=== PATIENT | female | born 1985 | race Caucasian/White ===

== ENCOUNTER 2017-11-18 16:51 | Outpatient (CLI) | payer OTHER ==
[2017-11-18 17:25] LABS: Hemoglobin 14.1 g/dL (12.0-16.0); Mean Corpuscular HGB CONC 34.2 g/dL (32.0-36.0); Mean Corpuscular Hemoglobin 31.2 pg (27.0-31.0); Mean Corpuscular Volume 91.3 fl (81.0-99.0); Mean Platelet Volume 8.5 fL (7.4-10.4); Platelet Count 177 thou/uL (130-400); RBC Distribution Width 11.2 % (11.5-14.5); White Blood Cell (WBC) Count 5.9 thou/uL (4.8-10.8)
[2017-11-18 18:56] LABS: BHCG - Serum Negative (NEGATIVE); Pregs Control Background? CLEAR/WHITE (CLR/WHITE); Pregs Control Bar Appear? YES (CONTROL BAR)
== END 2017-11-18 16:52 | disposition home or self-care (01) ==
LOC: LABBT 16:51
PROVIDERS: ATTEND Obstetrics & Gynecology
DX: Z01.812 Encounter for preprocedural laboratory examination (principal); R10.2 Pelvic and perineal pain
CPT/HCPCS: 84703; 85027; 86850; 86900; 86901

== ENCOUNTER 2017-11-19 10:20 | Day surgery (SDC) | payer OTHER ==
[2017-11-18 17:20] VITALS: BMI 21.7
[2017-11-19] MEDS ORDERED: CEFAZOLIN/Water 2 GM/20 ML SYRINGE ONE (11:01)
[2017-11-19] MEDS ORDERED: Ondansetron ODT 4 MG TAB ONE (11:46)
[2017-11-19] MEDS ORDERED: Bupivacaine/Epinephrine 0.25% 30 ML VIAL ONE (11:49)
[2017-11-19] MEDS ORDERED: Bupivacaine HCl 0.5%/Epinephrine 1:200,000/PF 30 ml Vial ONE (11:49)
[2017-11-19] MEDS ORDERED: Scopolamine 1.5 mg/72 hour Patch ONE (12:02)
[2017-11-19] MEDS ORDERED: Fentanyl 100 MCG/2 ML VIAL ONE ×3 (12:03→14:04)
[2017-11-19] MEDS ORDERED: HYDROcodone/Acetaminophen 5/325 mg Tablet ONE (15:05)
[2017-11-19] MEDS ORDERED: Glycopyrrolate 0.2 MG/ML 5 ML SYRINGE ONE (15:51)
[2017-11-19] MEDS ORDERED: Ketorolac Tromethamine 30 MG/ML VIAL ONE (15:51)
--- NOTE | 2017-11-19 17:56 | OP ---
DATE OF PROCEDURE: 11/19/2017 PREOPERATIVE DIAGNOSIS: Pelvic pain, unknown etiology, left side worst, chronic. POSTOPERATIVE DIAGNOSIS: Pelvic pain, unknown etiology, left side worst, chronic, cause unknown. PROCEDURE PERFORMED: Diagnostic laparoscopy and video documentation. SURGEON: Bryce Almazan M.D. STUDENT ACTIVITIES DIRECTOR: Gabby Potter. ANESTHESIA: General endotracheal by Duong Koenig CRNA (see his notes for details). OPERATIVE FINDINGS: Included normal-appearing uterus, tubes, and ovaries with a normal-appearing bruno er and absent appendix. Two previously used samuel from the appendectomy and the patient's cul-de-s ac that were subperitoneal, but in no serious position. Normal cul-de-sacs otherwise with no evidenc e of endometriosis or scarring. OPERATIVE COMPLICATIONS: None. BLOOD LOSS: Less than 10 mL PROCEDURE IN DETAIL: The patient was taken to the operating room after having received Ofirmev 1 gra m IV piggyback and 2 grams of Ancef IV piggyback and then she was given general anesthetic, prepped a nd draped and placed in modified lithotomy position. A bivalve speculum was placed in the vagina and the cervix was grasped with a tenaculum and a Hulka m anipulator placed within the uterine cavity. The laparoscopy was started by using 0.5% Marcaine on all the 3 incisions which were made at the umbi lical level. The laparoscope was inserted through a 5-mm trocar after the abdomen and had been insuf flated to 15 mm of pressure of carbon dioxide gas with the Veress needle and made after a stab wound with the knife. Lateral trocars were placed and levelled with the umbilical trocars for manipulation of the adnexa and further documentation of the patient's anatomy. Extensive evaluation of the patient's pelvis, both adnexa, anterior and posterior cul-de-sacs, the neftali wel and the liver were done. There was no definite evidence of any endometriosis. The two previous samuel that had fallen into the cul-de-sac. They were fixed and placed on the peritoneum and there may have been minor adhesions of the left adnexa to the left pelvic sidewall which were taken easily, relieved by just elevating the ovary. There was no bleeding from any of these actions. The gas was removed and the small incision was closed with subcuticular 3-0 plain. The skin was further closed with Dermabond glue. The Hulka manipulator was removed from the cervix and there was bleeding from t hat Hulka manipulator tenaculum. This was stopped by approximately 3 minutes of pressure and then so me silver nitrate on that wound. The patient was taken to the recovery room having tolerated the procedure and anesthesia well, where she did receive 30 mg of IV Toradol prior to the cessation of the case.
--- NOTE | 2017-11-19 18:15 | DIS ---
DATE OF ADMISSION: 11/19/2017 DATE OF DISCHARGE: 11/19/2017 Please see history and physical and operative note for further details. HOSPITAL COURSE: Basically, this is a 32-year-old white para 2 whose last episode of pregnan cy ended 3 years ago, was a spontaneous delivery of a male child. She subsequently developed intermi ttent and then worsening chronic left lower quadrant pain which got questionably better with use of D epo-Provera which stopped her menses. She has been treated with multiple regimens to try to alleviat e her pain including nortriptyline 25 mg which gave her no relief. She was also tried on gabapentin with no relief and she uses the ibuprofen, Celebrex, or tramadol for intermittent pain relief. We at tempted pelvic floor relaxation techniques and did not help her situation. She said it made her wors e. No full evaluation of the bowel was done that ultrasound has previously been negative and the exa m showed intermittent tenderness up on the left adnexa. At this point, the patient was ready for definitive diagnostic evaluation with laparoscopy. She unde rstands that there was some chance that no obvious cause would be made and she was prepared to lose t he left adnexa if necessary to relieve her pain depending on pathology found. HOSPITAL COURSE: On 11/19/2017, the patient underwent general anesthetic and had a diagnostic laparo scopy which was basically normal. Video photographs are available. Her liver was normal. Her appendix was surgically absent. She had a couple of (2:23) appendiceal clips that fallen in the cul-de-sac were fixed deep into the cu l-de-sac to the peritoneal sidewall and left in place. There were no definite adhesions, although th ere was some question when the left adnexa was manipulated that it may have been slightly adhesed to the left pelvic sidewall, which was easily released. Fallopian tubes and ovaries were normal bilater ally. Both cul-de-sacs showed no evidence of endometriosis or scarring and there was no sign of any previous infection in the pelvis. She did receive IV antibiotics preoperatively as well as Ofirmev and then intraoperatively she receiv ed Toradol for pain. Within approximately 2 hours, she was ready for discharge and the nurse called (3:10) vital sig ns were fine. She had no unusual complaints, had no severe nausea and she had been given oral Hortense for pain relief. IMPRESSION AND FINAL DIAGNOSES: Chronic left lower quadrant abdominal pain of questionable etiology, possibly due to chronic constipation due to some distention of the sigmoid colon. My plan is to discharge the patient home on Hortense 5/325 mg ibuprofen and switching over to tramadol a nd discontinuation of all significant pain medicines in a short period of time. She was only given 2 0 of the Hortense. Warnings and instructions were given to her both written and also to her and she has phone numbers to call and contact if she should have any unusual bleeding, worsening pelvic pain, worsening abdominal pain, fever, unusual discharge. At some point, we will discuss her starting either MiraLax regularly or a trial up with a newer medic ation such as Linzess for constipation and if they give her any relief and now ultimately going to a tax revenue officer if there is no obvious relief to the simple solutions. I discussed all of these findings with her in detail. She was cognizant of her situation wel l enough to discuss with her prior to discharge. Video photographs were given to the family as well and she understands that the description of the pathology. She has a followup appointment with me in 2 weeks.
== END 2017-11-19 16:00 | disposition home or self-care (01) ==
LOC: SDC 10:20
PROVIDERS: ATTEND Obstetrics & Gynecology
PROC: 0WJJ4ZZ Inspection of Pelvic Cavity, Percutaneous Endoscopic Approach (ICD-10-PCS; principal; 2017-11-19)
DX: R10.2 Pelvic and perineal pain (principal); G89.29 Other chronic pain; Z79.3 Long term (current) use of hormonal contraceptives; Z79.899 Other long term (current) drug therapy; Z88.1 Allergy status to other antibiotic agents; Z88.8 Allergy status to other drugs, medicaments and biological substances
CPT/HCPCS: 96374; J0131; J0670; J1885; J3010; Q0162

== ENCOUNTER 2018-09-02 10:27 | Day surgery (SDC) | payer OTHER ==
[2018-09-02 11:24] VITALS: BMI 23.6
[2018-09-02 11:47] LABS: Bilirubin Negative (Negative); Blood, Urine Negative (Negative); Clarity TURBID (Clear); Glucose, Urine (Dipstick) Negative (Negative); Leukocyte Small (Negative); Nitrite Negative (Negative); Protein, Urine (Dipstick) Negative (Neg-Trace); Specific Gravity, Urine 1.019 (1.002-1.036); Urobilinogen 0.2 mg/dL (0.2-1.0); pH, Urine 7.5 (5.0-9.0)
[2018-09-02 11:50] LABS: Bacteria/HPF 1+ HPF (None Seen); Hyaline Casts/LPF 0-3 HYALINE CAST LPF (0-3 Hyaline); Pathc Cast-AUWi Flag 0.58 (0-2.49); RBC/HPF 0-3 HPF (0-3)
[2018-09-02] MEDS: Lactated Ringer's 1,000 ML IV SCH ×2 (12:00→12:38)
[2018-09-02] MEDS ORDERED: Lactated Ringer's 1,000 ML IV SCH (12:00)
[2018-09-02] MEDS ORDERED: Ondansetron PF 4 MG/2 ML Vial ONE (12:15)
[2018-09-02 12:32] LABS: #Lymphocytes 1.8 thou/uL (1.20-3.40); #Monocytes 0.4 thou/uL (0.11-0.59); %Basophils 0.3 % (0.0-1.0); %Eosinophils 0.5 % (0.0-10.0); %Lymphocytes 19.6 % (21.0-51.0); %Monocytes 4.2 % (0.0-10.0); %Neutrophils 75.4 % (42.0-75.0); Hemoglobin 11.8 g/dL (12.0-16.0); Mean Corpuscular HGB CONC 33.5 g/dL (32.0-36.0); Mean Corpuscular Hemoglobin 30.6 pg (27.0-31.0); Mean Corpuscular Volume 91.2 fL (78.0-98.0); Mean Platelet Volume 9.6 fL (7.4-10.4); Platelet Count 159 thou/uL (130-400); RBC Distribution Width 11.8 % (11.5-14.5); Red Blood Cell (RBC) Count 3.87 mill/uL (4.20-5.40); White Blood Cell (WBC) Count 9.3 thou/uL (4.8-10.8)
[2018-09-02] MEDS ORDERED: Ondansetron PF 4 MG/2 ML Vial IVP SCH (13:00)
[2018-09-02 13:01] LABS: ALT (SGPT) 17 U/L (8-55); AST (SGOT) 24 U/L (5-34); Albumin 3.9 g/dL (3.5-5.0); Alkaline Phosphatase 51 U/L (40-150); Anion Gap 15 mmol/L (10-20); BUN (Urea Nitrogen) 15 mg/dL (7.0-18.7); Bilirubin, Total 0.3 mg/dL (0.2-1.2); Calc. Creatinine Clearance 140 mL/min (70-130); Calcium 8.8 mg/dL (7.8-10.44); Carbon Dioxide 20 mmol/L (22-29); Chloride 107 mmol/L (98-107); Estimated GFR-MDRD Greater than 90; Globulin 2.7 g/dL (2.4-3.5); Glucose 77 mg/dL (70-105); Potassium 3.9 mmol/L (3.5-5.1); Protein, Total 6.6 g/dL (6.0-8.3); Sodium 138 mmol/L (136-145)
[2018-09-02] MEDS ORDERED: Butorphanol Tartrate 1 MG/ML VIAL SLOW IVP PRN (13:20)
[2018-09-02] MEDS ORDERED: Butorphanol Tartrate 1 MG/ML VIAL ONE (13:25)
[2018-09-02] MEDS ORDERED: CEFAZOLIN 1 GM in Sodium Chloride 0.9% 100 ML IVPB SCH (14:00)
--- NOTE | 2018-09-02 21:47 | SS ---
DATE OF ADMISSION: 09/02/2018 DATE OF DISCHARGE: 09/02/2018 REGULAR PHYSICIAN: Jessica Abbott MD EVALUATING PHYSICIAN: Rishabh Nieves MD CHIEF COMPLAINT: Headache over the last 4 days with back pain and cramping. HISTORY OF PRESENT ILLNESS: Ms. Snider is a 33-year-old white G5, P2, AB2 with an estimated date of confinement of 12/18/2018, who presents complaining of a 4-day history of headache with nausea, blurry vision, lower abdominal pain, back pain, and cramping. Her care has been with Dr. Abbott without significant complications at this point. Her past obstetrical history includes 2 vaginal deliveries, one at term and one . PAST MEDICAL HISTORY: Includes migraine headaches and mixed connective tissue disorder. PAST SURGICAL HISTORY: Includes sinus surgery, tonsillectomy, right breast surgery, appendectomy, laparoscopy, and surgery to her hip and writs. CURRENT MEDICATIONS: 1. vitamins. 2. Cinthya. ALLERGIES: VERSED AND NORVASC. SOCIAL HISTORY: She denies tobacco, alcohol, or drug use. FAMILY HISTORY: Unremarkable. REVIEW OF SYSTEMS: She denies nausea, vomiting, fever, chills, vaginal bleeding or ruptured membranes. PHYSICAL EXAMINATION: In triage, her blood pressures are very reassuring. I see blood pressures in the 120s over 70s range. She is afebrile. In general, she is in no acute distress. Abdomen is soft, nontender, and gravid. heart tones are stable. Only an occasional contraction is seen. LABORATORY DATA: White count 9.3, hemoglobin and hematocrit are 11.8 and 35.3, platelet count 159,000. Chemistry: Sodium 138, potassium 3.9, BUN 15, creatinine 0.51, total bilirubin 0.3, AST and ALT are 24 and 17 respectively. Her alkaline phosphatase is 51. Urinalysis shows a specific gravity of 1.019 with negative protein, negative glucose, negative ketones. On microscopic urinalysis, there is 0-3 rbc's, 7-10 white cells, 1+ bacteria with only 46 epithelials. The patient was hydrated, given a single dose of Ancef 1 g IV as well as a single dose of Stadol 1 mg. She began to feel better after these were given. ASSESSMENT: 1. 24-1/2 week intrauterine . 2. No evidence of labor. 3. History of migraine headaches. 4. Urinary tract infection. PLAN: The patient will be discharged home with labor precautions. She was given a prescription for Keflex 500 mg one p.o. 4 times a day for a week. She has already been given headache medicine by Dr. Abbott and she can use this at home. She was told to return should she experience symptoms of labor. She voiced understanding of her discharge instructions and was sent home in good condition. Job ID: [id number]
== END 2018-09-02 15:20 | disposition home or self-care (01) ==
LOC: L&D/OP 10:27
PROVIDERS: ATTEND Obstetrics & Gynecology
DX: O99.89 Other specified diseases and conditions complicating pregnancy, childbirth and the puerperium (principal); G43.909 Migraine, unspecified, not intractable, without status migrainosus; O23.42 Unspecified infection of urinary tract in pregnancy, second trimester; Z3A.24 24 weeks gestation of pregnancy; Z90.89 Acquired absence of other organs; Z90.49 Acquired absence of other specified parts of digestive tract; Z88.4 Allergy status to anesthetic agent; Z88.8 Allergy status to other drugs, medicaments and biological substances; Z98.890 Other specified postprocedural states; Z79.899 Other long term (current) drug therapy
CPT/HCPCS: 80053; 81003; 81015; 85025; 96361; 96365; 96375; 99283; J0595; J0690; J2405; J7050

== ENCOUNTER 2018-11-02 04:44 | Inpatient (IN) | payer OTHER ==
[2018-11-02 05:43] VITALS: BP 117/79; TEMP 98.5; BMI 27.4
[2018-11-02 05:52] LABS: Amnisure Test RUPTURE DETECTED (No Rupture)
[2018-11-02 05:53] LABS: Amnisure Internal Control QC ACCEPTABLE (ACCEPTABLE)
[2018-11-02] MEDS ORDERED: Acetaminophen 500 MG TAB PO PRN (06:04)
[2018-11-02] MEDS ORDERED: Butorphanol Tartrate 1 MG/ML VIAL SLOW IVP PRN (06:04)
[2018-11-02] MEDS ORDERED: Meperidine HCl/PF 25 MG/ML VIAL IM/IV PRN (06:04)
[2018-11-02] MEDS ORDERED: Ondansetron PF 4 MG/2 ML Vial IVP PRN (06:04)
[2018-11-02] MEDS ORDERED: Promethazine HCl 25 MG/ML VIAL IM PRN (06:04)
[2018-11-02] MEDS ORDERED: CEFAZOLIN 2 GM in Premix Bag 1 BAG IVPB SCH (06:15)
[2018-11-02] MEDS ORDERED: Lactated Ringer's 1,000 ML IV SCH ×2 (06:15)
[2018-11-02] MEDS ORDERED: Penicillin G Potassium 5 MILL.UNITS in Sodium Chloride 0.9% 100 ML IVPB SCH (06:15)
[2018-11-02] MEDS ORDERED: Bicitra 30 ML UDCUP PO SCH (06:15)
[2018-11-02 06:41] LABS: Hemoglobin 11.8 g/dL (12.0-16.0); Mean Corpuscular HGB CONC 33.4 g/dL (32.0-36.0); Mean Corpuscular Hemoglobin 30.1 pg (27.0-31.0); Mean Corpuscular Volume 90.2 fL (78.0-98.0); Mean Platelet Volume 9.1 fL (7.4-10.4); Platelet Count 128 thou/uL (130-400); RBC Distribution Width 12.2 % (11.5-14.5); Red Blood Cell (RBC) Count 3.91 mill/uL (4.20-5.40); White Blood Cell (WBC) Count 10.8 thou/uL (4.8-10.8)
[2018-11-02] MEDS ORDERED: Magnesium Sulfate 20 gm/500 ml 20 GM/500 ML BAG ONE (07:18)
[2018-11-02 07:20] LABS: Hep B Surf Ag Non-Reactive S/CO (NonReactive)
--- NOTE | 2018-11-02 07:21 | HP ---
REGULAR PHYSICIAN: Jessica Abbott MD EVALUATING PHYSICIAN: Rishabh Nieves MD CHIEF COMPLAINT: Leakage of fluid at home. HISTORY OF PRESENT ILLNESS: Ms. Snider is a 33-year-old white, G5, P2, AB2 with an estimated date of confinement of 12/18/2018, who presents complaining of leakage of fluid starting at 2:00 a.m. with intermittent contractions. She denies vaginal bleeding or decreased movement. Her care has been with Dr. Abbott. PAST OBSTETRICAL HISTORY: Includes 2 vaginal deliveries, one at term and one at 31 weeks. PAST MEDICAL HISTORY: Reported connective tissue disorder. PAST SURGICAL HISTORY: Sinus surgery, tonsillectomy, bilateral shoulder surgery , right breast surgery, surgery to her left breast, bilateral hip surgeries as well as an appendectomy and laparoscopy. CURRENT MEDICATIONS: Include; 1. vitamins. 2. Desouza. ALLERGIES: TO VERSED AND NORVASC. SOCIAL HISTORY: Denies tobacco, alcohol, or drug use. FAMILY HISTORY: Otherwise, unremarkable. REVIEW OF SYSTEMS: Positive for leakage of fluid. Denies fever, chills, nausea , vomiting, vaginal bleeding, or decreased movement. PHYSICAL EXAMINATION: VITAL SIGNS: Stable and she is afebrile in triage. CHEST: Clear to auscultation. CARDIOVASCULAR: Regular rate and rhythm. ABDOMEN: Soft, nontender, and gravid. heart rate tracing is stable with no decelerations. Intermittent contractions were seen. LABORATORY DATA: AmniSure returns positive for ruptured membranes. ASSESSMENT: 1. A 33-week intrauterine . 2. Ruptured membranes. PLAN: Dr. Abbott has been contacted and the plan at this time is to give steroids and start penicillin. Should she progress in labor, it appears that her disposition at this time is to proceed with a primary due to her bilateral past hip surgeries. She will be watched carefully for progression of labor. Job ID: [id number] [facility]
[2018-11-02 07:22] LABS: Syphilis Antibody Nonreactive (Nonreactive); Syphilis Antibody Index 0.14 S/CO (<1.00 Non-Reactive)
--- NOTE | 2018-11-02 07:24 | PDOC.EVN ---
Event Note - Event Note Event Note: Continues to c/o UCs. SVE rechecked by labor RN, unchanged a . FHTs stable, UCs q 5 mins. NICU at capacity. Will start MgS04 and attempt transfer to another facility.
[2018-11-02] MEDS ORDERED: Calcium Gluc 4.6 MEQ/10 ML (100 MG/ML) SLOW IVP PRN (07:27)
[2018-11-02] MEDS ORDERED: Magnesium Sulfate 20 GM/WATER 500 ML BAG IVPB SCH (07:30)
[2018-11-02] MEDS ORDERED: Magnesium Sulfate 20 gm/500 ml 20 GM/500 ML BAG IVPB SCH (07:30)
[2018-11-02] MEDS ORDERED: Betamet Acet/Betamet Na Ph 30 MG/5 ML VIAL IM SCH (09:00)
[2018-11-02] MEDS ORDERED: Penicillin G 2.5 MILL.units 2.5 MILL.UNITS in Premix Bag 1 BAG IVPB SCH (12:00)
== END 2018-11-02 08:57 | disposition short-term general hospital (02) | DRG 833 ==
LOC: L&D/OP 04:44 → L&D 07:22
PROVIDERS: ADMIT Obstetrics & Gynecology; ATTEND Obstetrics & Gynecology
DX: O42.913 Preterm premature rupture of membranes, unspecified as to length of time between rupture and onset of labor, third trimester (principal); Z3A.33 33 weeks gestation of pregnancy; Z98.890 Other specified postprocedural states; Z88.8 Allergy status to other drugs, medicaments and biological substances; Z88.4 Allergy status to anesthetic agent; Z90.49 Acquired absence of other specified parts of digestive tract
CPT/HCPCS: 36415; 84112; 85025; 85027; 86780; 86850; 86900; 86901; 87340; 87389; 99285; J0702; J2405; J2540; J3475; J7050

== ENCOUNTER 2019-02-26 06:09 | Day surgery (SDC) | payer OTHER ==
[2019-02-25 09:49] VITALS: BMI 24.3
[2019-02-26] MEDS ORDERED: Fentanyl 100 MCG/2 ML VIAL ONE (06:13)
[2019-02-26] MEDS ORDERED: ceFAZolin Sodium (SDC) 2 GM/100 ML BAG ONE (06:43)
[2019-02-26 06:47] LABS: #Basophils 0.1 thou/uL (0.0-0.2); #Eosinphils 0.3 thou/uL (0.0-0.7); #Lymphocytes 1.9 thou/uL (1.20-3.40); #Monocytes 0.4 thou/uL (0.11-0.59); #Neutrophils 2.7 thou/uL (1.40-6.50); %Eosinophils 4.9 % (0.0-10.0); %Lymphocytes 35.9 % (21.0-51.0); %Monocytes 8.3 % (0.0-10.0); %Neutrophils 49.9 % (42.0-75.0); Hemoglobin 13.7 g/dL (12.0-16.0); Mean Corpuscular HGB CONC 33.5 g/dL (32.0-36.0); Mean Corpuscular Hemoglobin 28.9 pg (27.0-31.0); Mean Corpuscular Volume 86.2 fL (78.0-98.0); Platelet Count 173 thou/uL (130-400); RBC Distribution Width 13.1 % (11.5-14.5); Red Blood Cell (RBC) Count 4.74 mill/uL (4.20-5.40); White Blood Cell (WBC) Count 5.3 thou/uL (4.8-10.8)
[2019-02-26] MEDS ORDERED: Bupivacaine/Epinephrine 0.25% 30 ML VIAL ONE (06:55)
[2019-02-26] MEDS ORDERED: Lidocaine 2% PF 5 ML VIAL ONE (06:55)
--- NOTE | 2019-02-26 11:17 | OP ---
DATE OF PROCEDURE: 02/26/2019 PREOPERATIVE DIAGNOSIS: Left axillary mass. PROCEDURE PERFORMED: Excisional biopsy. INDICATIONS: A 33-year-old female, who has a 7-month history of bilateral axillary adenopathy, no response to oral antibiotics, left was greater than right. FINDINGS: Probable axillary breast tissue looked glandular. There were pockets of milky fluid. DESCRIPTION OF PROCEDURE: After informed consent was obtained, the patient was taken to the operating room, given general mask anesthesia, placed in supine position. Her axilla was prepped and draped in usual fashion. A linear axillary incision was performed. Subcu divided sharply. This mass was very close to the skin. It had very glandular looking material with pockets of milky fluid. It was excised. An adjacent lymph node was taken with the specimen and sent to Pathology fresh. Hemostasis was achieved with electrocautery. A 10-Pashto round drain was placed, brought out through a separate stab wound. Subcu reapproximated with interrupted 3-0 Vicryl. Skin was closed with a running subcuticular 4-0 Rapide. Steri-Strips applied. Sterile bandage applied. The patient tolerated the procedure well and transferred to Recovery in good condition. Sponge and needle count verified correct x2. Job ID: [id number]
== END 2019-02-26 10:00 | disposition home or self-care (01) ==
LOC: SDC 06:09
PROVIDERS: ATTEND Surgery
PROC: 0JB60ZZ Excision of Chest Subcutaneous Tissue and Fascia, Open Approach (ICD-10-PCS; principal; 2019-02-26)
DX: N60.22 Fibroadenosis of left breast (principal); F41.9 Anxiety disorder, unspecified; F32.9 Major depressive disorder, single episode, unspecified; Z88.1 Allergy status to other antibiotic agents; Z88.8 Allergy status to other drugs, medicaments and biological substances
CPT/HCPCS: 85025; 88184; 88307; 88341; 88342; J0690; J2001; J3010

== ENCOUNTER 2020-10-05 08:58 | Outpatient (CLI) | payer OTHER | END 2020-10-05 08:59 | disposition home or self-care (01) | LOC: DTY/OP 08:58 | PROVIDERS: ATTEND Family Medicine | DX: R63.5 Abnormal weight gain (principal) | CPT/HCPCS: 97802 ==